=== PATIENT | female | born 1975 | race Caucasian/White ===

== ENCOUNTER → 2017-11-02 03:25 | Emergency (ER) | payer SELFPAY | END | disposition left against medical advice (07) | LOC: ER 03:25 | DX: M25.559 Pain in unspecified hip (principal); Z53.21 Procedure and treatment not carried out due to patient leaving prior to being seen by health care provider ==

== ENCOUNTER → 2018-02-11 | Outpatient (CLI) | payer OTHER ==
--- NOTE | 2018-02-11 16:12 | RAD ---
DATE: 02/11/2018 EXAM: DIGITAL DIAGNOSTIC BILATERAL, BREAST RIGHT HISTORY: Palpable abnormality at the 9:30 position the right breast. COMPARISON: Prior mammogram from 09/17/2016 This study was interpreted with the benefit of Computerized Aided Detection (CAD). The breast parenchyma is dense, which could reduce the sensitivity of mammography. Breast parenchyma level density D. FINDINGS: Bilateral CC and MLO views of each breast were obtained. 3-D tomosynthesis was performed in CC and MLO projections. Targeted right breast ultrasound was performed. Right breast: There is a mass in the retroareolar right breast, 3.5 cm from the nipple with high density measuring approximately 5 mm. There are no suspicious microcalcifications or areas of architectural distortion. No suspicious or malalignment is identified in the area of palpable abnormality. Left breast: There are no suspicious medical stations, masses or areas of architectural distortion. Right breast sonogram: Targeted sonographic evaluation at the 9:30 position, 4 cm from the nipple was performed in the region of patient's palpable abnormality. No suspicious mass or area of architectural distortion is identified. No calcifications are identified. There is a 6.5 x 3.5 x 3.0 cm circumscribed oval hypoechoic cystic mass in the posterior right breast at the 12:00 position which correlates with mammographic abnormality. Findings favor a cyst with debris suggestive of a complicated cyst. Findings are probably benign. IMPRESSION: Probably benign findings in the right breast. No suspicious abnormalities correlate with palpable abnormality. Six-month follow-up right mammogram and sonogram is recommended. Negative left mammogram. BI-RADS CATEGORY: 3 PROBABLY BENIGN FINDING(S)-SHORT INTERVAL FOLLOW-UP SUGGESTED RECOMMENDED FOLLOW-UP: 6M 6 MONTH FOLLOW-UP PQRS compliance statement: Mammography is a sensitive method for finding small breast cancers, but it does not detect them all and is not a substitute for careful clinical examination. A negative mammogram does not negate a clinically suspicious finding and should not result in delay in biopsying a clinically suspicious abnormality. "Our facility is accredited by the [employer] Mammography Program."
== END | disposition home or self-care (01) ==
LOC: MAMMO 13:42
PROVIDERS: ATTEND Family Medicine
DX: R92.1 Mammographic calcification found on diagnostic imaging of breast (principal)
CPT/HCPCS: 76641; 77066

== ENCOUNTER → 2018-02-19 | Outpatient (CLI) | payer OTHER ==
--- NOTE | 2018-02-19 15:06 | RAD ---
Thyroid ultrasound, 02/19/2018: HISTORY: Throat trauma, dysphasia The right lobe of the thyroid gland measures 5.3 x 1.9 x 1.3 cm while the left lobe measures 4.9 x 1.6 x 1.4 cm. In the lower pole of the left lobe of the gland there is a well-defined 13 x 9 x 7 mm nodule. It demonstrates cystic and solid components in a partially spongiform pattern. It is wider than tall. There are at least 3 small subcentimeter well-defined hypoechoic nodules in the right lobe of the gland, the largest of which measures 5 mm. A 6 mm nodule with similar sonographic characteristics is present in the upper aspect of the left lobe. No calcifications or other highly suspicious findings are evident. IMPRESSION: Multinodular thyroid gland with the largest nodule lying inferiorly in the left lobe and measuring 1.3 cm as described above. No highly suspicious features to suggest biopsy are evident. Electronically signed by: Priyank Payne MD (02/19/2018 3:02 PM) [facility]
== END | disposition home or self-care (01) ==
LOC: US 09:44
PROVIDERS: ATTEND Family Medicine
DX: S17.0 Crushing injury of larynx and trachea (principal); X58.XXXD Exposure to other specified factors, subsequent encounter
CPT/HCPCS: 76536

== ENCOUNTER → 2018-12-11 | Outpatient (CLI) | payer OTHER ==
--- NOTE | 2018-12-12 11:19 | RAD ---
Transabdominal and transvaginal ultrasound the pelvis. HISTORY: Lower pelvic pain Transabdominal ultrasound was used to evaluate the pelvis. Uterus is normal in size and appearance. The uterus measured 8.7 x 4 x 5.6 cm on the transabdominal images. Endometrium measured 1 cm. There is no uterine mass. Left ovary was identified and normal in appearance. Right ovary was identified and normal in appearance. Transvaginal imaging was performed for better evaluation. There are nabothian cysts at the cervix. There is no other uterine mass. Endometrium was 8 mm in thickness at the fundus. There is no free fluid in the pelvis. Right ovary measured 1.8 x 2.6 x 3.5 cm with 3 small follicles less than a centimeter. There is flow in the right ovary with Doppler and color imaging. Left ovary measured 1.1 x 3.1 x 3 cm. There are small follicles. There is flow in the left ovary with color imaging and Doppler. IMPRESSION: 1. Normal ultrasound of the pelvis. Electronically signed by: Peterson Pagan MD (12/12/2018 11:16 AM) [facility]
== END | disposition home or self-care (01) ==
LOC: US 10:46
PROVIDERS: ATTEND Nurse Practitioner Family
DX: N88.8 Other specified noninflammatory disorders of cervix uteri (principal); N83.8 Other noninflammatory disorders of ovary, fallopian tube and broad ligament
CPT/HCPCS: 76830; 76856

== ENCOUNTER 2019-03-26 08:27 | Emergency (ER) | payer OTHER ==
[~2019-03-26] VITALS: Ht 162.6 cm; Wt 56.7 kg
[2019-03-26 08:45] VITALS: BP 135/82
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
== END 2019-03-26 09:24 | disposition home or self-care (01) ==
LOC: ER 08:27
DX: S60.222A Contusion of left hand, initial encounter (principal); F17.200 Nicotine dependence, unspecified, uncomplicated; E03.9 Hypothyroidism, unspecified; Z91.012 Allergy to eggs; Z88.0 Allergy status to penicillin; Y08.89XA Assault by other specified means, initial encounter; Y93.89 Activity, other specified; Y92.89 Other specified places as the place of occurrence of the external cause; Y99.8 Other external cause status
CPT/HCPCS: 73110; 73130; 99284

== ENCOUNTER 2020-02-27 22:36 | Emergency (ER) | payer SELFPAY ==
[~2020-02-27] VITALS: Ht 162.6 cm; Wt 63.0 kg
[2020-02-28] MEDS ORDERED: HYDROcodone/APAP 5/325MG 1 TAB TABLET PO ONE ×2 (00:15→00:30)
--- NOTE | 2020-02-28 00:24 | RAD ---
Left foot 3 views. HISTORY: Pain and swelling, bruising, long fell on foot 3 views were taken of the left foot. There is not evidence of an acute fracture or osseous abnormality. There is extensive soft tissue swelling. IMPRESSION: 1. Soft tissue swelling left foot. 2. No acute fracture. Electronically signed by: Peterson Pagan MD (02/28/2020 12:21 AM) [id number]
[2020-02-28] MEDS ORDERED: HYDR-3165 PO (00:31)
--- NOTE | 2020-02-28 00:32 | PHYS DOC ---
Past History Past Medical History: Hypothyroid, Other Past Surgical History: Tubal ligation Smoking: Greater than 1 pack/day Alcohol Use: Occasionally Drug Use: Marijuana General Adult EDM: Chief Complaint: FOOT INJURY PAIN HPI: HPI: 44-year-old female presents with left foot pain. The patient dropped a log from about 5 feet in the air onto her left foot. She has significant ecchymosis and swelling of the midfoot. She denies change in sensation. She is concerned about fracture. She has no other injuries. Review of Systems: Review of Systems: Constitutional: Denies fever or chills Eyes: Denies change in visual acuity HENT: Denies nasal congestion or sore throat Respiratory: Denies cough or shortness of breath Cardiovascular: Denies chest pain or edema GI: Denies abdominal pain, nausea, vomiting, bloody stools or diarrhea : Denies dysuria Musculoskeletal: Left foot pain Integument: Denies rash Neurologic: Denies headache, focal weakness or sensory changes Endocrine: Denies polyuria or polydipsia Lymphatic: Denies swollen glands Psychiatric: Denies depression or anxiety Heart Score: Risk Factors: Risk Factors: DM, Current or recent (<one month) smoker, HTN, HLP, family history of CAD, obesity. Risk Scores: Score 0 - 3: 2.5% MACE over next 6 weeks - Discharge Home Score 4 - 6: 20.3% MACE over next 6 weeks - Admit for Clinical Observation Score 7 - 10: 72.7% MACE over next 6 weeks - Early Invasive Strategies Current Medications: Current Meds: Current Medications Medications (Trade) Dose Ordered Sig/Margot Start Time Stop Time Status Last Admin Dose Admin Acetaminophen/ Hydrocodone Bitart (Lortab 5/325) 1 tab 1X ONCE 02/28/20 00:15 02/28/20 00:16 DC 02/28/20 00:12 1 TAB Allergies: Allergies: Allergies Coded Allergies Type Severity Reaction Last Updated Verified Penicillins Allergy rash 09/02/13 Yes egg Allergy 09/02/13 Yes Physical Exam: PE: Constitutional: Well developed, well nourished, no acute distress, non-toxic appearance. [] HENT: Normocephalic, atraumatic, bilateral external ears normal, oropharynx moist, no oral exudates, nose normal. [] Eyes: PERRLA, EOMI, conjunctiva normal, no discharge. [] Neck: Normal range of motion, no tenderness, supple, no stridor. [] Cardiovascular:Heart rate regular rhythm, no murmur [] Lungs & Thorax: Bilateral breath sounds clear to auscultation [] Abdomen: Bowel sounds normal, soft, no tenderness, no masses, no pulsatile masses. [] Skin: Warm, dry, no erythema, no rash. [] Back: No tenderness, no CVA tenderness. [] Extremities: Tenderness of the left dorsal foot, significant ecchymosis and swelling. [] Neurologic: Alert and oriented X 3, normal motor function, normal sensory function, no focal deficits noted. [] Psychologic: Affect normal, judgement normal, mood normal. [] EKG: EKG: [] Radiology/Procedures: Radiology/Procedures: [] Impressions: Left foot 3 views. HISTORY: Pain and swelling, bruising, long fell on foot 3 views were taken of the left foot. There is not evidence of an acute fracture or osseous abnormality. There is extensive soft tissue swelling. IMPRESSION: 1. Soft tissue swelling left foot. 2. No acute fracture. Electronically signed by: Peterson Leary MD (02/28/2020 12:21 AM) [id number] DICTATED AND SIGNED BY: PETERSON LEARY MD DATE: 02/28/20 0021 CC: JENNIFER MENA DO; SALVADOR DUMONT MD ~ Course & Med Decision Making: Course & Med Decision Making Pertinent Labs and Imaging studies reviewed. (See chart for details) The patient does not have a fracture. She does have significant swelling and ecchymosis. I have given her 2 [place] 5/325. I will discharge her with the same medication. She is stable for discharge at this time. [] Dragon Disclaimer: Dragon Disclaimer: This electronic medical record was generated, in whole or in part, using a voice recognition dictation system. Departure Departure: Impression: Primary Impression: Contusion of left foot Qualified Codes: S90.32XA - Contusion of left foot, initial encounter Disposition: 01 HOME/RESIDENCE PRIOR TO ADM Condition: STABLE Referrals: SALVADOR DUMONT MD (PCP) Patient Instructions: Foot Contusion, [id number] Scripts Hydrocodone Bit/Acetaminophen (NORCO 5-325 TABLET) 1 Each Tablet 1 TAB PO PRN Q6HRS PRN for PAIN, #14 TAB 0 Refills Prov: JENNIFER EMNA DO 02/28/20 Justification of Admission: Justification of Admission: Justification of Admission Dx: N/A JENNIFER MENA DO Feb 28, 2020 00:32
[2020-02-28 01:00] VITALS: BP 129/63
== END 2020-02-28 01:00 | disposition home or self-care (01) ==
LOC: ER 22:36
DX: S90.32XA Contusion of left foot, initial encounter (principal); E03.9 Hypothyroidism, unspecified; F17.200 Nicotine dependence, unspecified, uncomplicated; Z88.0 Allergy status to penicillin; Z91.012 Allergy to eggs; W20.8XXA Other cause of strike by thrown, projected or falling object, initial encounter; Y93.89 Activity, other specified; Y92.89 Other specified places as the place of occurrence of the external cause; Y99.8 Other external cause status
CPT/HCPCS: 73630; 99283